=== PATIENT | female | born 1970 | race African-American/Black ===

== ENCOUNTER 2017-03-23 16:20 | Emergency (ER) | payer OTHER ==
[~2017-03-23] VITALS: Ht 170.2 cm; Wt 117.9 kg
[~2017-03-23 16:20] MED LIST: APAP500 PO; CEFUROXIME250 MG PO; COMPLERA TABLE1 EACH PO; CYMBALTA20 MG PO; DIFLUCAN150 MG PO; IBUPROFEN 400400 M2 PO; LANTUS100 UNIT/M SUBQ; LEVAQUIN 750 M750 MG PO; METFORMIN HCL500 MG PO; NEURONTIN 300300 M1 PO; PEPCID20 MG PO; PROAIR HFA8.5 GM INH; PROTONIX 20 MG20 M1 PO; PROZAC10 MG PO; TAMIFLU75 MG PO; UNICOMPLEX M TA1 TA1 PO; VENTOLIN HFA 1818 GM INH
[2017-03-23] MEDS ORDERED: PROBIOTIC1 EAC1 PO (16:47)
[2017-03-23 17:50] LABS: ABSOLUTE EOSINOPHILS 0.1 thou/uL (0.0-0.7); ABSOLUTE LYMPHOCYTES 1.8 thou/uL (0.8-5.3); ABSOLUTE MONOCYTES 0.4 thou/uL (0.0-1.2); ABSOLUTE NEUTROPHILS 4.5 thou/uL (1.6-8.1); BASOPHILS 0.3 %; HEMATOCRIT 34.7 % (37.0-47.0); HEMOGLOBIN 12.1 gm/dL (12.0-15.0); MCH 30.9 pg (26.0-34.0); MCHC 34.8 g/dL (28.0-37.0); MCV 88.9 fL (80.0-100.0); MONOCYTES 5.7 %; MPV 8.7 fl. (7.2-11.1); NUCLEATED RBCS 0 /100WBC; PLATELET COUNT* 361 thou/uL (150-400); RDW-CV 12.9 % (10.5-14.5); WBC 6.9 thou/uL (4.0-11.0)
[2017-03-23 17:57] LABS: CALCIUM 8.4 mg/dL (8.5-10.1); CREATININE 0.6 mg/dL (0.6-1.3); POTASSIUM 3.2 mmol/L (3.5-5.1)
[2017-03-23 18:02] LABS: ALBUMIN 3.4 g/dL (3.4-5.0); TOTAL BILIRUBIN 0.4 mg/dL (<0.1-1.0); TOTAL PROTEIN 7.6 g/dL (6.4-8.2)
[2017-03-23] MEDS ORDERED: NAPROSYN500 MG PO (19:19)
[2017-03-23 19:47] VITALS: BP 136/81
--- NOTE | 2017-03-24 16:21 | EKG ---
[place] [address] ELECTROCARDIOGRAM REPORT Name: MATILDA RODRIGUEZ Room: [facility]#: [id number] Admission: 03/23/17 Attend Phys: Discharge: 03/23/17 Date of : 74 Report #: [id number] THIS REPORT FOR: //name// [facility] ED Test Date: 2017-03-23 Test Time: 17:18:14 Pat Name: MATILDA RODRIGUEZ Department: Room: Gender: F Faculty Research Physician: Burak BRIDGES : 1970 Requested By: Sophia Manzano Order Number: [id number] MD: Andi Hussein Measurements Intervals [place] Rate: 99 P: 58 SC: 139 QRS: 40 QRSD: 89 T: 0 QT: 361 QTc: 464 Interpretive Statements Sinus rhythm Borderline T abnormalities, inferior leads Compared to ECG 04/27/2016 14:36:29 No significant changes Electronically Signed On 03-24-2017 16:21:10 FINANCIAL ADMINISTRATION OFFICER by Andi Hussein [email or web address] <ELECTRONICALLY SIGNED> By: Andi Hussein MD, [facility] 03/24/17 1621 1718 1718 Andi Hussein MD, FAC /EPI
== END 2017-03-23 19:51 | disposition home or self-care (01) ==
LOC: M.ERS 16:20
PROVIDERS: Nurse Practitioner Family
DX: J06.9 Acute upper respiratory infection, unspecified (principal); R09.1 Pleurisy; E11.9 Type 2 diabetes mellitus without complications; E78.00 Pure hypercholesterolemia, unspecified; Z21 Asymptomatic human immunodeficiency virus [HIV] infection status; Z90.49 Acquired absence of other specified parts of digestive tract; Z88.0 Allergy status to penicillin

== ENCOUNTER 2017-10-27 16:09 | Emergency (ER) | payer OTHER ==
[~2017-10-27] VITALS: Ht 167.6 cm; Wt 116.6 kg
[~2017-10-27 16:09] MED LIST changes: +NAPROSYN500 MG PO; +PROBIOTIC1 EAC1 PO
[2017-10-27] MEDS ORDERED: LIPITOR 20 MG T20 M1 PO (16:21)
[2017-10-27] MEDS ORDERED: ERGOCALCIF50000 UNIT PO (16:22)
[2017-10-27] MEDS ORDERED: BIKTARVY 50-201 EACH PO (16:23)
[2017-10-27] MEDS ORDERED: PROBIOTIC1 EAC1 PO (16:24)
[2017-10-27] MEDS ORDERED: JANUMET 50-1,01 EACH PO (16:24)
[2017-10-27] MEDS ORDERED: CYMBALTA30 MG PO (16:27)
[2017-10-27 16:50] LABS: ABSOLUTE BASOPHILS 0.1 thou/uL (0.0-0.2); ABSOLUTE EOSINOPHILS 0.1 thou/uL (0.0-0.7); ABSOLUTE LYMPHOCYTES 1.7 thou/uL (0.8-5.3); ABSOLUTE MONOCYTES 0.6 thou/uL (0.0-1.2); ABSOLUTE NEUTROPHILS 5.3 thou/uL (1.6-8.1); BASOPHILS 0.9 %; HEMATOCRIT 39.3 % (37.0-47.0); HEMOGLOBIN 13.1 gm/dL (12.0-15.0); LYMPHOCYTES 22.1 %; MCH 30.9 pg (26.0-34.0); MCHC 33.4 g/dL (28.0-37.0); MCV 92.5 fL (80.0-100.0); MONOCYTES 7.6 %; MPV 9.3 fl. (7.2-11.1); NUCLEATED RBCS 0 /100WBC; PLATELET COUNT* 334 thou/uL (150-400); POLYS 68.4 %; RBC 4.25 mil/uL (4.20-5.00); RDW-CV 13.4 % (10.5-14.5); WBC 7.8 thou/uL (4.0-11.0)
[2017-10-27 16:55] LABS: ANION GAP 8 mmol/L (7-16); BUN 12 mg/dL (7-18); CALCIUM 8.8 mg/dL (8.5-10.1); CHLORIDE 100 mmol/L (98-107); CO2 25 mmol/L (21-32); CREATININE 0.7 mg/dL (0.6-1.3); GLUCOSE 242 mg/dL (70-99); POTASSIUM 4.1 mmol/L (3.5-5.1); SODIUM 133 mmol/L (136-145)
[2017-10-27 17:02] LABS: ALBUMIN 3.4 g/dL (3.4-5.0); ALKALINE PHOSPHATASE 88 U/L (46-116); SGOT 13 U/L (15-37); SGPT 23 U/L (30-65); TOTAL BILIRUBIN 0.3 mg/dL (<0.1-1.0); TROPONIN-I LEVEL <0.06 ng/mL (<0.06)
[2017-10-27] MEDS ORDERED: ACETAMINOPHEN-1 EAC1 PO (17:56)
[2017-10-27 18:16] VITALS: BP 140/80
--- NOTE | 2017-10-28 13:55 | EKG ---
[place] [address] ELECTROCARDIOGRAM REPORT Name: MATILDA RODRIGUEZ [place] Room: [facility]#: [id number] Admission: 10/27/17 Attend Phys: Discharge: 10/27/17 Date of : 74 Report #: [id number] THIS REPORT FOR: //name// [facility] ED Test Date: 2017-10-27 Test Time: 17:50:57 Pat Name: MATILDA RODRIGUEZ Department: Room: Gender: F Night Warehouse Selector: : 1970 Requested By: Clarissa Pascal Order Number: [id number] Yunior MD: Te Starr Measurements Intervals [place] Rate: 96 P: 39 UT: 134 QRS: 23 QRSD: 86 T: 24 QT: 341 QTc: 431 Interpretive Statements Sinus rhythm Compared to ECG 03/23/2017 17:18:14 T-wave abnormality no longer present Electronically Signed On 10-28-2017 13:55:18 CDT by Te Starr [email or web address] <ELECTRONICALLY SIGNED> By: Te Starr MD, [facility] 10/28/17 1355 1750 175 Te Starr MD, FACC /EPI
--- NOTE | 2017-10-28 13:55 | EKG ---
[place] [address] ELECTROCARDIOGRAM REPORT Name: MATILDA RODRIGUEZ [place] Room: [facility]#: [id number] Admission: 10/27/17 Attend Phys: Discharge: 10/27/17 Date of : 74 Report #: [id number] THIS REPORT FOR: //name// [facility] ED Test Date: 2017-10-27 Test Time: 16:16:09 Pat Name: MATILDA RODRIGUEZ Department: Room: Gender: F Grill Chef: : 1970 Requested By: Clarissa Pascal Order Number: [id number] MD: Te Starr Measurements Intervals [place] Rate: 106 P: [place]: QRS: 36 QRSD: 85 T: 7 QT: 332 QTc: 441 Interpretive Statements Sinus rhythm Compared to ECG 03/23/2017 17:18:14 Sinus rate has increased T-wave abnormality no longer present Electronically Signed On 10-28-2017 13:55:05 CDT by Te Starr [email or web address] <ELECTRONICALLY SIGNED> By: Te Starr MD, [facility] 10/28/17 1355 1616 161 Te Starr MD, FACC /EPI
== END 2017-10-27 18:17 | disposition home or self-care (01) ==
LOC: M.ERS 16:09
PROVIDERS: Nurse Practitioner Family
DX: R07.89 Other chest pain (principal); E11.9 Type 2 diabetes mellitus without complications; E78.00 Pure hypercholesterolemia, unspecified; E66.01 Morbid (severe) obesity due to excess calories; Z68.41 Body mass index [BMI] 40.0-44.9, adult; Z79.4 Long term (current) use of insulin; Z88.0 Allergy status to penicillin; Z90.49 Acquired absence of other specified parts of digestive tract

== ENCOUNTER 2019-08-31 16:17 | Emergency (ER) | payer OTHER, MEDICAID ==
[~2019-08-31] VITALS: Ht 170.2 cm; Wt 125.7 kg
[~2019-08-31 16:17] MED LIST changes: +ACETAMINOPHEN-1 EAC1 PO; +BIKTARVY 50-201 EACH PO; +CYMBALTA30 MG PO; +ERGOCALCIF50000 UNIT PO; +JANUMET 50-1,01 EACH PO; +LIPITOR 20 MG T20 M1 PO
[2019-08-31 18:46] LABS: ABSOLUTE EOSINOPHILS 0.1 thou/uL (0.0-0.7); ABSOLUTE LYMPHOCYTES 1.1 thou/uL (0.8-5.3); ABSOLUTE MONOCYTES 0.5 thou/uL (0.0-1.2); ABSOLUTE NEUTROPHILS 3.9 thou/uL (1.6-8.1); BASOPHILS 0.7 %; EOSINOPHILS 1.4 %; HEMATOCRIT 37.7 % (37.0-47.0); LYMPHOCYTES 19.1 %; MCHC 34.4 g/dL (28.0-37.0); MONOCYTES 8.9 %; MPV 8.7 fl. (7.2-11.1); NUCLEATED RBCS 0 /100WBC; PLATELET COUNT* 303 thou/uL (150-400); POLYS 69.9 %; RBC 4.06 mil/uL (4.20-5.00); RDW-CV 12.9 % (10.5-14.5); WBC 5.6 thou/uL (4.0-11.0)
[2019-08-31 18:53] LABS: CALCIUM 8.8 mg/dL (8.5-10.1); CREATININE 0.8 mg/dL (0.6-1.3); POTASSIUM 4.3 mmol/L (3.5-5.1)
[2019-08-31 18:58] LABS: ALBUMIN 3.6 g/dL (3.4-5.0); TOTAL BILIRUBIN 0.4 mg/dL (<0.1-1.0); TOTAL PROTEIN 7.7 g/dL (6.4-8.2)
[2019-08-31] MEDS ORDERED: NORCO 5-325 TA1 EAC2 PO (19:02)
[2019-08-31 19:28] VITALS: BP 154/94
== END 2019-08-31 19:28 | disposition home or self-care (01) ==
LOC: M.ERS 16:17
PROVIDERS: Physician Assistant
DX: M79.662 Pain in left lower leg (principal); E11.65 Type 2 diabetes mellitus with hyperglycemia; L29.9 Pruritus, unspecified; R60.0 Localized edema; E78.00 Pure hypercholesterolemia, unspecified; E66.01 Morbid (severe) obesity due to excess calories; Z68.41 Body mass index [BMI] 40.0-44.9, adult; Z88.0 Allergy status to penicillin; Z90.49 Acquired absence of other specified parts of digestive tract

== ENCOUNTER → 2019-10-04 | Outpatient (CLI) | payer OTHER, MEDICAID ==
[~2019-10-04] MED LIST changes: +NORCO 5-325 TA1 EAC2 PO
== END ==
LOC: M.MRI 08:17
PROVIDERS: ATTEND Registered Nurse Diabetes Educator
DX: Z12.31 Encounter for screening mammogram for malignant neoplasm of breast (principal); N60.82 Other benign mammary dysplasias of left breast; N60.81 Other benign mammary dysplasias of right breast; M54.42 Lumbago with sciatica, left side; M47.816 Spondylosis without myelopathy or radiculopathy, lumbar region

== ENCOUNTER 2019-10-07 02:48 | Emergency (ER) | payer OTHER, MEDICAID ==
[~2019-10-07] VITALS: Ht 170.2 cm; Wt 124.7 kg
[2019-10-07] MEDS ORDERED: NORVASC5 M1 PO (02:54)
[2019-10-07] MEDS ORDERED: BIKTARVY 50-201 EACH PO (02:54)
[2019-10-07] MEDS ORDERED: SUPER THERAVIT1 EACH PO (02:54)
[2019-10-07 03:58] VITALS: BP 138/79
== END 2019-10-07 03:58 | disposition home or self-care (01) ==
LOC: M.ERS 02:48
DX: S61.012A Laceration without foreign body of left thumb without damage to nail, initial encounter (principal); E11.9 Type 2 diabetes mellitus without complications; E78.00 Pure hypercholesterolemia, unspecified; E66.01 Morbid (severe) obesity due to excess calories; Z88.0 Allergy status to penicillin; Z79.899 Other long term (current) drug therapy; W26.0XXA Contact with knife, initial encounter; Y93.89 Activity, other specified; Y92.89 Other specified places as the place of occurrence of the external cause; Y99.9 Unspecified external cause status

== ENCOUNTER → 2019-11-07 | Outpatient (CLI) | payer OTHER, MEDICAID ==
[~2019-11-07] MED LIST changes: +NORVASC5 M1 PO; +SUPER THERAVIT1 EACH PO
== END ==
LOC: M.PC 08:00
PROVIDERS: ATTEND Physical Medicine & Rehabilitation
DX: M47.26 Other spondylosis with radiculopathy, lumbar region (principal); M51.06 Intervertebral disc disorders with myelopathy, lumbar region; M51.16 Intervertebral disc disorders with radiculopathy, lumbar region

== ENCOUNTER → 2020-04-25 | Outpatient (CLI) | payer OTHER, MEDICAID ==
[~2020-04-25] MED LIST changes: +CHILDREN'S ASPI81 MG PO; +FISH OIL 1,0001 EAC9
== END ==
LOC: M.PC 09:16
PROVIDERS: ATTEND Physical Medicine & Rehabilitation
DX: M51.16 Intervertebral disc disorders with radiculopathy, lumbar region (principal); M47.26 Other spondylosis with radiculopathy, lumbar region; R20.2 Paresthesia of skin; M19.011 Primary osteoarthritis, right shoulder; M19.012 Primary osteoarthritis, left shoulder

== ENCOUNTER → 2020-05-15 | Outpatient (CLI) | payer OTHER, MEDICAID | LOC: M.MRI 13:30 | PROVIDERS: ATTEND Registered Nurse Diabetes Educator | DX: M19.012 Primary osteoarthritis, left shoulder (principal); R60.0 Localized edema ==